=== PATIENT | female | born 1990 | race Two or more races ===

== ENCOUNTER 2019-10-07 11:07 | Outpatient (CLI) | payer OTHER | END 2019-10-07 12:11 | disposition home or self-care (01) | LOC: NST 11:07 | DX: Z34.83 Encounter for supervision of other normal pregnancy, third trimester (principal) ==

== ENCOUNTER 2019-10-11 13:13 | Outpatient (CLI) | payer OTHER | END 2019-10-11 13:49 | disposition home or self-care (01) | LOC: NST 13:13 | DX: Z34.83 Encounter for supervision of other normal pregnancy, third trimester (principal) ==

== ENCOUNTER 2019-10-12 06:26 | Inpatient (IN) | payer OTHER ==
[~2019-10-12] VITALS: Ht 154.9 cm; Wt 68.0 kg
== END 2019-10-14 12:16 | disposition home or self-care (01) | DRG 807 ==
LOC: OB/GYN → LDR 06:26 → SURG-SUITE 06:26 → OB/GYN 14:59 → SURG-SUITE 21:54 → OB/GYN 10-18 13:13
PROVIDERS: ADMIT Obstetrics & Gynecology Maternal & Fetal Medicine
PROC: 10E0XZZ Delivery of Products of Conception, External Approach (ICD-10-PCS; principal; 2019-10-12)
PROC: 0KQM0ZZ Repair Perineum Muscle, Open Approach (ICD-10-PCS; 2019-10-12)
DX: O70.1 Second degree perineal laceration during delivery (principal); Z37.0 Single live birth; Z3A.39 39 weeks gestation of pregnancy

== ENCOUNTER 2023-11-01 15:09 | Emergency (ER) | payer OTHER ==
[~2023-11-01] VITALS: Ht 154.9 cm; Wt 72.6 kg
[2023-11-01 17:33] LABS: HEMOGLOBIN 11.3 g/dL (12.0-15.00); MEAN CELL VOLUME 88.9 fL (80.00-100.00); MEAN CORPUSCULAR HEMOGLOBIN 31.3 pg (27.00-32.0); MEAN CORPUSCULAR HGB CONC 35.2 g/dl (32.0-36.0); PLATELET COUNT 199 K/uL (150-450); RED CELL DISTRIBUTION WIDTH 13.2 % (11.5-14.5)
[2023-11-01 17:59] LABS: CALCIUM 8.6 mg/dL (8.5-10.1); CREATININE SERUM 0.39 mg/dL (0.55-1.02); GFR 188.13; POTASSIUM 3.67 mEq/L (3.5-5.1)
[2023-11-01 18:08] LABS: PH,URINE 7.5 (5.0-8.0); URINE APPEARANCE Clear; URINE BILIRRUBIN Negative (NEGATIVE); URINE BLOOD Negative; URINE COLOR Yellow; URINE GLUCOSE Negative (NEGATIVE); URINE LEUKOCYTE Moderate; URINE NITRATE Negative; URINE PROTEIN Negative (NEGATIVE)
[2023-11-01 18:11] LABS: URINE BACTERIA 1407.2 uL (0.0-1933); URINE EPITHELIAL CELLS 34.1 uL (0.0-38.8); URINE RBC 8.1 uL (0.0-20.8); URINE WBC 51.1 uL (0.0-23.2)
== END 2023-11-01 18:44 | disposition home or self-care (01) ==
LOC: ER 15:09
PROVIDERS: Emergency Medicine
DX: S36.32XA Contusion of stomach, initial encounter (principal); W50.0XXA Accidental hit or strike by another person, initial encounter; Y93.89 Activity, other specified; Y92.018 Other place in single-family (private) house as the place of occurrence of the external cause; O26.892 Other specified pregnancy related conditions, second trimester; Z3A.16 16 weeks gestation of pregnancy

== ENCOUNTER 2024-04-22 12:25 | Outpatient (CLI) | payer OTHER | END 2024-04-22 13:28 | disposition home or self-care (01) | LOC: NST 12:25 | PROVIDERS: ATTEND Emergency Medicine | DX: Z34.83 Encounter for supervision of other normal pregnancy, third trimester (principal) ==

== ENCOUNTER 2024-05-01 03:20 | Inpatient (IN) | payer OTHER ==
[~2024-05-01] VITALS: Ht 154.9 cm; Wt 80.7 kg
[2024-05-01] MEDS ORDERED: ERYTHROMYCIN BASE 1 GM TUBE OP ONE (03:25)
[2024-05-01] MEDS ORDERED: OXYTOCIN 20 UNITS/1000ML RL PIGGYBAG IV ONE (03:25)
[2024-05-01] MEDS ORDERED: CHLORHEXIDINE GLUCONATE 120 ML BOTTLE TOP ONE (03:25)
[2024-05-01] MEDS ORDERED: LIDOCAINE HCL 1% 10ML VIAL ONE ×2 (03:26→04:39)
[2024-05-01] MEDS ORDERED: RINGERS SOLUTION,LACTATED 1,000 ML IV SCH (03:30)
[2024-05-01 04:21] LABS: HEMATOCRIT 32.8 % (36.0-45.00); MEAN CELL VOLUME 84.5 fL (80.00-100.00); MEAN CORPUSCULAR HEMOGLOBIN 28.3 pg (27.00-32.0); MEAN CORPUSCULAR HGB CONC 33.4 g/dl (32.0-36.0); PLATELET COUNT 243 K/uL (150-450); RED BLOOD COUNT 3.88 M/uL (4.00-6.00); RED CELL DISTRIBUTION WIDTH 13.6 % (11.5-14.5)
[2024-05-01] MEDS ORDERED: OxyCODONE HCL/APAP UD (PERCOCET) PO PRN (04:30)
[2024-05-01] MEDS ORDERED: OXYTOCIN 1,000 ML IV SCH (04:30)
[2024-05-01] MEDS ORDERED: ERYTHROMYCIN BASE 1 GM TUBE OP SCH (04:30)
[2024-05-01] MEDS ORDERED: CHLORHEXIDINE GLUCONATE 120 ML BOTTLE TOP SCH (04:30)
[2024-05-01] MEDS ORDERED: LIDOCAINE HCL 1% 10ML VIAL IJ ONE (04:45)
[2024-05-01 04:52] LABS: INR 0.95; PARTIAL THROMBOPLASTIN TIME 29.7 SECONDS (22.0-34.0); PROTHROMBIN TIME 10.4 SECONDS (9.0-11.5)
[2024-05-01 04:57] LABS: ALBUMIN 2.9 gm/dL (3.4-5.0); BILIRUBIN TOTAL 0.27 mg/dL (0.3-1.2); CALCIUM 8.9 mg/dL (8.5-10.1); CREATININE SERUM 0.48 mg/dL (0.55-1.02); GFR 147.18; GLOBULINA 3.6 G/DL (2.4-3.5); POTASSIUM 3.61 mEq/L (3.5-5.1); TOTAL PROTEIN 6.5 gm/dL (6.4-8.2)
[2024-05-01] MEDS ORDERED: KETOROLAC TROMETHAMINE 10 MG TABLET PO SCH (06:00)
== END 2024-05-03 12:56 | disposition home or self-care (01) | DRG 807 ==
LOC: LDR 03:20 → OB/GYN 03:20 → SURG 05-02 14:15 → OB/GYN 05-03 12:56
PROVIDERS: Obstetrics & Gynecology Maternal & Fetal Medicine; ADMIT Obstetrics & Gynecology; ATTEND Obstetrics & Gynecology
PROC: 10E0XZZ Delivery of Products of Conception, External Approach (ICD-10-PCS; principal; 2024-05-01)
PROC: 0KQM0ZZ Repair Perineum Muscle, Open Approach (ICD-10-PCS; 2024-05-01)
PROC: 4A1HXCZ Monitoring of Products of Conception, Cardiac Rate, External Approach (ICD-10-PCS; 2024-05-01)
DX: O70.1 Second degree perineal laceration during delivery (principal); Z37.0 Single live birth; Z3A.39 39 weeks gestation of pregnancy; Z20.822 Contact with and (suspected) exposure to COVID-19